=== PATIENT | male | born 1990 | race American Indian/Alaskan Native ===

== ENCOUNTER 2020-04-08 12:13 | Emergency (ER) | payer SELFPAY ==
[2020-04-08 12:27] VITALS: BP 153/91
--- NOTE | 2020-04-08 12:54 | Emergency Department Report ---
Chief Complaint: Extremity Injury, Upper Stated Complaint: RT ARM PAIN Time Seen by Provider: 04/08/20 12:48 - HPI History of Present Illness: 30 yo male denies any PMH. Reports tightness to right upper biceps with extension x 3 days. He denies CP, SOB, No known injuries.. - ROS Review of Systems: Denies chest pain, shortness of breath, no fever no chills no weakness in his extremities, no pain or redness to his right upper arm - Exam Vital Signs: Vital Signs 04/08/20 12:25 Temperature 98.0 F Pulse Rate 72 Respiratory 16 Rate Blood Pressure 153/91 O2 Sat by Pulse 100 Oximetry Physical Exam: Awake alert and oriented respirations easy and unlabored. Lungs clear. Skin warm dry intact. Right upper arm bicep area with appreciation of a large vessel that felt sclerotic. There is no tenderness, no redness no swelling he has full range of motion to his upper extremity . 2+ radial pulse cap refill 1-2 sec, sensation intact. Nontoxic-appearing in no distress MSE screening note: Focused history and physical exam performed. Due to findings the following was ordered: Patient discussed with doctor:: HAN JARAMILLO ED Medical Decision Making - Medical Decision Making 30-year-old male with what appears to be sclerotic vessel to his right upper extremity with no signs of cellulitis, neurovascular intact no pain or discomfort he denies fever chills no chest pain no shortness of breath. He denies any injuries recently or in the past. Plan is for patient to follow-up with PCP and or vascular doctor to further evaluate ED Disposition for MSE Clinical Impression: Blood vessel injury Disposition: [id number] TO HOME OR SELFCARE Is pt being admited?: No Does the pt Need Aspirin: No Condition: Stable Additional Instructions: Your examination today showed no urgent medical problem. You are to follow-up with your primary care doctor or with the Dr. Martinez or [facility]. If you develop chest pain shortness of breath, redness swelling pain, weakness, to your extremity please return to the emergency room immediately. Referrals: [facility] [Outside] - 3-5 Days SLOAN MARTINEZ MD [Staff Physician] - 3-5 Days Time of Disposition: 12:58
== END 2020-04-08 13:11 | disposition home or self-care (01) ==
LOC: ED 12:13
DX: T14.8XXA Other injury of unspecified body region, initial encounter (principal); Y92.89 Other specified places as the place of occurrence of the external cause
CPT/HCPCS: 99282